=== PATIENT | female | born 1970 | race African-American/Black ===

== ENCOUNTER 2018-08-17 12:03 | Emergency (ER) | payer MEDICAID, OTHER ==
[~2018-08-17] VITALS: Ht 162.6 cm; Wt 83.0 kg
[2018-08-17 12:15] VITALS: BP 147/97
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
[2018-08-17] MEDS ORDERED: Ketorolac 30mg Inj IM ONE (12:30)
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
--- NOTE | 2018-08-17 12:50 | NUR ---
ED Nurse Note: US being doen at bedside at this moment.
--- NOTE | 2018-08-17 13:16 | NUR ---
ED Nurse Note: US done.
--- NOTE | 2018-08-17 13:29 | Diagnostic Imaging Report ---
Indication: Right leg pain and swelling Technique: Grayscale and duplex images of the right lower extremity veins Comparison: none Findings: Grayscale and duplex images demonstrate no evidence of intraluminal thrombus. Normal compressibility of all deep veins. Normal phasic Doppler waveforms, demonstrating normal augmentation response and no evidence of valvular insufficiency. Impression: Negative for right lower extremity deep venous thrombosis
[2018-08-17] MEDS ORDERED: IBUPROFEN800 MG ORAL (13:44)
[2018-08-17 14:00] VITALS: BP 144/67
--- NOTE | 2018-08-17 14:00 | NUR ---
ER DISCHARGE NOTE: Patient is cleared to be discharged per ERMD, pt is aox4, accompanied by mother, on room air, with stable vital signs. pt was given dc and prescription instructions, and sudhir wraped applied and crutches provided. pt was able to verbalize understanding on RICE rest, ice, compression, elevation to reduce pain, pt id band removed. pt is able to ambulate with steady gait with crutches. pt took all belongings.
--- NOTE | 2018-08-17 14:43 | Diagnostic Imaging Report ---
Indication: Right knee pain Technique: 3 views of the right knee Comparison: None Findings: There is degenerative narrowing of the medial joint compartment. There are small medial osteophytes. There is questionably a suprapatellar effusion. No acute fractures. No dislocations. Impression: Degenerative changes. No acute bony trauma
== END 2018-08-17 14:00 | disposition home or self-care (01) ==
LOC: EMR 13:15
DX: M25.561 Pain in right knee (principal); Z88.0 Allergy status to penicillin
CPT/HCPCS: 73562; 93971; 96372; 99284; J1885